=== PATIENT | female | born 1995 ===

== ENCOUNTER 2018-08-28 10:58 | Outpatient (CLI) | payer OTHER ==
[~2018-08-28] VITALS: Ht 165.1 cm; Wt 62.1 kg
== END 2018-08-28 11:15 | disposition home or self-care (01) ==
LOC: OFIC 805 10:58
DX: R13.19 Other dysphagia (principal); J31.0 Chronic rhinitis; J34.2 Deviated nasal septum; R22.1 Localized swelling, mass and lump, neck

== ENCOUNTER 2018-08-28 13:22 | Outpatient (CLI) | payer OTHER | END 2018-08-28 13:30 | disposition home or self-care (01) | LOC: LAB 13:22 | DX: N20.0 Calculus of kidney (principal); Z51.81 Encounter for therapeutic drug level monitoring ==

== ENCOUNTER 2018-08-29 10:58 | Outpatient (CLI) | payer OTHER | END 2018-08-29 16:05 | disposition home or self-care (01) | LOC: RAD 10:58 | DX: R22.1 Localized swelling, mass and lump, neck (principal); R13.19 Other dysphagia ==

== ENCOUNTER 2018-09-11 08:57 | Outpatient (CLI) | payer OTHER ==
[~2018-09-11] VITALS: Ht 152.4 cm; Wt 62.1 kg
== END 2018-09-11 09:15 | disposition home or self-care (01) ==
LOC: OFIC 805 08:57
DX: J31.0 Chronic rhinitis (principal); R13.19 Other dysphagia; J34.2 Deviated nasal septum

== ENCOUNTER 2019-09-22 16:12 | Emergency (ER) | payer OTHER ==
[~2019-09-22] VITALS: Ht 167.6 cm; Wt 55.3 kg
== END 2019-09-22 21:14 | disposition home or self-care (01) ==
LOC: ER 16:12
DX: T24.111A Burn of first degree of right thigh, initial encounter (principal); T23.161A Burn of first degree of back of right hand, initial encounter; X12.XXXA Contact with other hot fluids, initial encounter; Y93.89 Activity, other specified; Y92.89 Other specified places as the place of occurrence of the external cause; Y99.8 Other external cause status